=== PATIENT | male | born 1975 | race Caucasian/White ===

== ENCOUNTER → 2022-10-10 | Outpatient (CLI) | payer BC ==
--- NOTE | 2022-10-10 14:49 | P.SLEEP ---
History of Present Illness H&P Date: 10/10/22 Chief Complaint: Loud snoring This is a 47-year-old male patient was referred to me for evaluation of sleep apnea. The patient has been noted to have loud snoring by his and several other family members. He is not sure if he quits breathing at nighttime. He is a nose breather and he wakes up with dry mouth in the morning. He sleeps on his back. No cervical consumption late in the evening. 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 He is fully functional. Does not fall asleep during working hours. Does not fall asleep while driving his car. He was to bed at around 9 PM and wakes up 5 AM in the morning. Is averaging about 7 hours of sleep. No symptoms of excessive fatigue or sleepiness. No insomnia. No choking or gasping for air. No nocturia. No grinding of the teeth. No anxiety. No depression. No palpitations. No sleepwalking. No sleep talking. Drinks half a pot of coffee on a daily basis. His weight has remained stable and he has been waiting 185 pounds. No sleep paralysis. No hallucinations. No cataplexy. He is known to have psoriatic arthritis maintained on Enbrel injections with good results. He has had also previous Covid 19 infection, recovered. No head trauma. Review of Systems Constitutional: Denies chills, Denies fever Eyes: denies as per HPI, denies blurred vision, denies bulging eye, denies decreased vision, denies diplopia, denies discharge, denies dry eye, denies irritation, denies itching, denies pain, denies photophobia, denies loss of peripheral vision, denies loss of vision, denies tunnel vision/blind spots Ears: deny: decreased hearing, ear discharge, earache, tinnitus Ears, nose, mouth and throat: Reports as per HPI Breasts: absent: as per HPI, gynecomastia Cardiovascular: Reports as per HPI Respiratory: Reports snoring Gastrointestinal: Reports as per HPI Genitourinary: Reports as per HPI Musculoskeletal: Reports hot joints Musculoskeletal: absent: ankle pain, ankle stiffness, ankle swelling, as per HPI, elbow pain, elbow stiffness, elbow swelling, foot pain, foot stiffness, foot swelling, hand pain, hand stiffness, hand swelling, hip pain, hip stiffness, hip swelling, knee pain, knee stiffness, knee swelling, shoulder pain, shoulder stiffness, shoulder swelling, wrist pain, wrist stiffness, wrist swelling Integumentary: Reports as per HPI (History of psoriasis) Neurological: Reports as per HPI Psychiatric: Reports as per HPI Endocrine: Reports as per HPI Hematologic/Lymphatic: Reports as per HPI Allergic/Immunologic: Reports as per HPI Past Medical History Additional Past Medical History / Comment(s): Psoriasis and history of psoriatic arthritis. Previous history of Covid 19 infection Medications and Allergies Home Medications and Allergies Comment(s): Enbrel injections once a week Physical Exam BP is 123/81 with a pulse of 72 and a respiration of 16 and a temperature 96.9. Saturations 96% on room air oxygen. His weight is 204, [place] score is at 18, Neck size 16 inches and body mass index is 28.2 The patient appeared well nourished and normally developed. Vital signs as documented. Head exam is unremarkable. No scleral icterus or corneal arcus noted. Neck is without jugular venous distension, thyromegaly, or carotid bruits. Carotid upstrokes are brisk bilaterally. Mallampati class I. Lungs are clear to auscultation and percussion. Cardiac exam reveals the PMI to be normally sized and situated. Rhythm is regular. First and second heart sounds normal. No murmurs, rubs or gallops. Abdominal exam reveals normal bowel sounds, no masses, no organomegaly and no aortic enlargement. Extremities are nonedematous and both femoral and pedal pulses are normal. Examination of the skin revealed no evidence of significant rashes, suspicious appearing nevi or other concerning lesions.Neurologically, the patient is awake and alert and the patient does not have any focal neurological deficit. Cranial nerves are essentially intact. Assessment and Plan Plan: Chronic snoring with concerns of obstructive sleep apnea. The patient is denying having any issues with his sleep quality and genital. He sleeps on his back. He has a Mallampati class I. Body mass index is 28.2. No major hypersomnia or sleepiness. [place] score is elevated subjectively. Psoriasis and history of psoriatic arthritis maintained on Enbrel injections Plan Discussed the pathophysiology of snoring and sleep apnea in general I'm not certain the patient has obstructive sleep apnea maintenance patient with snoring and it's worthwhile investigating this further with a home sleep study Treatment options including conservative measures or weight loss, avoiding alcoholic beverages, achieving adequate patency of the upper airways and sleeping on his side was discussed with the patient. Other options such as snore guard versus oral appliance versus CPAP was discussed the patient Final decision on treatment options will be made based on the results of the sleep study We'll continue to follow Sleep Note - Sleep Note Sleep Note: Temperature: Pulse Rate: Respiratory Rate: Blood Pressure: SpO2: Height: Weight: BMI: Neck Circumference:
== END ==
LOC: SLEEP 14:03
PROVIDERS: ATTEND Internal Medicine Critical Care Medicine
DX: G47.33 Obstructive sleep apnea (adult) (pediatric) (principal); L40.52 Psoriatic arthritis mutilans
CPT/HCPCS: 99202

== ENCOUNTER → 2023-01-16 | Outpatient (CLI) | payer BC ==
--- NOTE | 2023-01-16 16:33 | P.PN ---
Progress Note - Text Progress Note Date: 01/16/23 This is a 47-year-old male patient was diagnosed having obstructive sleep apnea, severe with an AHI of 36. Noted the patient did not have strictly obstructive sleep apnea. A combination of obstructive and central sleep apnea. He is known to have chronic hypersomnia and sleepiness and the patient has history of psoriatic arthritis maintain on July the injections. Based on this, the patient was given an APAP machine and the patient is a newer generation ResMed 11 which is set at a pressure minimum of 5 and a maximum of 15. The patient was also given an air fit F 20 fullface mask. Initially he had difficulties having a full facemask and he was switched to F 30 fullface mask which she is able to tolerate. Based on a 30 day compliancy data that has been collected between 12/16/2022 and 01/14/2023, the overall compliancy was 70%. Note that there has been some interruption in the usage as the patient was waiting for his new mask to arrive. His been averaging around 4 hours of 49 minutes of CPAP use per night. He has achieved more than 4 hours of usage 60% of the time. Note that his AHI is down to 9.5 with a central apnea index of 2.5. Average pressure delivered by the machines around 11.5 cm of water. Specifically over the past 1 week, the treatment has become much more successful. The average pressures of dropped even further and the patient is able to achieve an AHI of as low as 6. He is already feeling better. Is committed to long-term CPAP therapy. His s noring is completely resolved. Has no other significant complaints. As the patient is feeling better, he seems to be getting gradually more committed to long-term CPAP therapy. He has no other complaints otherwise for now. BP is 120/80 with a pulse of 64 and a respiration of 12 and the temperature is 98.3 and the patient's [place] score is down to 10. His weight is 195 pounds. The patient appeared well nourished and normally developed. Vital signs as documented. Head exam is unremarkable. No scleral icterus or corneal arcus noted. Neck is without jugular venous distension, thyromegaly, or carotid bruits. Carotid upstrokes are brisk bilaterally. Lungs are clear to auscultation and percussion. Cardiac exam reveals the PMI to be normally sized and situated. Rhythm is regular. First and second heart sounds normal. No murmurs, rubs or gallops. Abdominal exam reveals normal bowel sounds, no masses, no organomegaly and no aortic enlargement. Extremities are nonedematous and both femoral and pedal pulses are normal.Examination of the skin revealed no evidence of significant rashes, suspicious appearing nevi or other concerning lesions. Neurologically, the patient is awake and alert and the patient does not have any focal neurological deficit. Cranial nerves are essentially intact. Assessment Severe sleep apnea with an AHI of 36, predominantly obstructed with a central component. Currently on APAP therapy Hypersomnia, improving Snoring, recovered History of psoriatic arthritis Plan Continue CPAP therapy the same level of pressures which is 5/15 cm of water Continue the air fit F 30 fullface mask Adequate compliancy which is further improving Improved level of consciousness during the day Activate EPR, set at the level of 3 See her back in one year's time
== END ==
LOC: SLEEP 15:52
PROVIDERS: ATTEND Internal Medicine Critical Care Medicine
DX: G47.33 Obstructive sleep apnea (adult) (pediatric) (principal); L40.50 Arthropathic psoriasis, unspecified; Z99.89 Dependence on other enabling machines and devices
CPT/HCPCS: 99212

== ENCOUNTER 2023-09-07 06:31 | Day surgery (SDC) | payer BC ==
[2023-09-05 10:13] VITALS: BMI 26.4
[~2023-09-07 06:31] MED LIST: LACTATED RINGERS 1,000 ML IV SCH; LIDOCAINE 1% (10MG/ML) FOR IV START INTRADERMA PRN
[2023-09-07 07:36] VITALS: TEMP 97.8
[2023-09-07] MEDS ORDERED: LIDOCAINE 2% (PF) 20 MG/ML 5 ML VIAL ONE (07:37)
[2023-09-07] MEDS ORDERED: PROPOFOL 10 MG/ML 20 ML VIAL IV ONE (07:37)
[2023-09-07] MEDS ORDERED: fentaNYL (PF) 50 MCG/ML 2 ML AMP ONE (07:37)
--- NOTE | 2023-09-07 08:09 | P.PCN ---
Date of Procedure: 09/07/23 Procedure(s) Performed: Brief history: Patient is a pleasant 48-year-old white male scheduled for an elective upper endoscopy as well as colonoscopy as a part of evaluation of GERD and screening for colon cancer. He also has family history of gastric cancer diagnosed in his father at age 60. Procedure performed: Esophagogastroduodenoscopy with biopsy results. Colonoscopy Preoperative diagnosis: GERD/family history of stomach cancer Screening for colon cancer Anesthesia: MAC Procedure: After informed consent was obtained from the patient was brought into the endoscopy unit and IV sedation was administered by anesthesia under continuous monitoring. Initially upper endoscopy was done. The Olympus GF 160 video endoscope was inserted inserted into the mouth and esophagus intubated without any difficulty and was gradually advanced into the stomach and duodenum and carefully examined. The bulb and second part of the duodenum appeared normal. The scope was then withdrawn into the stomach adequately insufflated with air and upon careful examination the antrum had mild patchy areas of erythema consistent with gastritis and biopsies were done from this area. Mucosa of the body, cardia and fundus appeared normal. The scope was then withdrawn into the esophagus. The GE junction was located at 40 cm to the incisors. It appeared erythematous with 2 superficial erosions consistent with LA grade B reflux esophagitis. Rest of the esophagus appeared normal. Patient tolerated the proc edure well. At this time the patient continued to remain sedation. Initial digital rectal examination was normal. Olympus CF 160 video colonoscope was then inserted into the rectum and gradually advanced to the cecum without any difficulty. Careful examination was performed as the scope was gradually being withdrawn. The prep was excellent. The cecum, ascending colon, transverse colon, descending colon, sigmoid colon and rectum appeared normal. Scattered sigmoid diverticula cyst. Retroflexion was performed in the rectum and no lesions were noted. Patient tolerated the procedure well. Impression: 1. Upper endoscopy revealed mild antral gastritis and LA grade B reflux esophagitis 2. Colonoscopy revealed scattered sigmoid diverticulosis but no evidence of colorectal neoplasia Recommendations: Findings of this examination were discussed with the patient as well as his family. He was advised to follow with the biopsy results. Start H2 blockers [id number] for reflux symptoms. Recommend repeat screening colonoscopy in 10 years.
[2023-09-07 08:27] VITALS: BP 107/75; PULSE 74; RESP 16
== END 2023-09-07 08:44 | disposition home or self-care (01) ==
LOC: ORWHC2ENDO 06:31
PROVIDERS: ATTEND Internal Medicine Gastroenterology
DX: Z12.11 Encounter for screening for malignant neoplasm of colon (principal); K29.50 Unspecified chronic gastritis without bleeding; K57.30 Diverticulosis of large intestine without perforation or abscess without bleeding; L40.50 Arthropathic psoriasis, unspecified; K21.00 Gastro-esophageal reflux disease with esophagitis, without bleeding; Z80.0 Family history of malignant neoplasm of digestive organs; Z79.899 Other long term (current) drug therapy
CPT/HCPCS: 88305; 45378; 43239; J3010; J2704; J2001